=== PATIENT | female | born 2000 | race Caucasian/White ===

== ENCOUNTER 2022-09-03 00:13 | Emergency (ER) | payer SELFPAY ==
[~2022-09-03] VITALS: Ht 162 cm; Wt 82.0 kg
[2022-09-03] MEDS ORDERED: LORazepam 0.5 MG (ATIVAN) TABLET PO STA (00:26)
[2022-09-03] MEDS ORDERED: ONDANSETRON 4 MG (ZOFRAN) ORAL DISSOLVE TAB PO STA (00:26)
--- NOTE | 2022-09-03 00:37 | ED Psychosocial ---
General Chief Complaint: Substance Abuse Stated Complaint: CBD GUMMIES Source: patient History of Present Illness Date Seen by Provider: Sep 03, 2022 Time Seen by Provider: 00:16 Initial Comments 22-year-old female presenting with complaints of feeling like she took too much in terms of "delta 8 Gummies". She states that she got them from the [employer] store and took 4 of them around 2230. She felt palpitations, nausea, light headed, and like she was going to pass out when she closed her eyes. She reports taking delta 8 previously but this was the first time she did not as edibles. When she looked at her bedside that there was 50 mg of CBD in each gummy and she had taken for them. Since she felt like she had taken too much she had tried to make herself throw up. She was still feeling the same effects and symptoms. She felt like things were getting worse instead of better. She does have a history of anxiety and depression. She denies any suicidal or homicidal ideations. She denies taking any other drugs or substances. Timing/Duration: this evening, getting worse Severity: moderate Associated Symptoms: ingestion Allergies and Home Medications Allergies Coded Allergies: No Known Drug Allergies (Unverified , 09/03/22) Patient Home Medication List Home Medication List Reviewed: Yes Review of Systems Constitutional: No chills, No fever EENTM: no symptoms reported Respiratory: no symptoms reported Cardiovascular: palpitations Gastrointestinal: nausea, vomiting Genitourinary: No dysuria Musculoskeletal: no symptoms reported Skin: no symptoms reported Psychiatric/Neurological: Anxiety, Emotional Problems Past Chtwirc-Xtokvd-Aaqcvm Hx Patient Social History Tobacco Use?: No Use of E-Cig and/or Vaping dev: Yes E-Cig or Vaping type used: CBD, Synthetic Cannabinoids Substance use?: Yes Substance type: Other (CBD ) Past Medical History Surgery/Hospitalization HX: Anxiety, Depression, Insomnia Physical Exam Vital Signs - First Documented 09/03/22 00:19 Temp 36.4 Pulse 114 Resp 18 B/P (MAP) 135/87 (103) Pulse Ox 100 O2 Delivery Room Air Capillary Refill : Height, Weight, BMI Height: '" Weight: lbs. oz. kg; BMI Method: General Appearance: WD/WN, no apparent distress HEENT: PERRL/EOMI, pharynx normal Neck: non-tender, full range of motion, supple, normal inspection Respiratory: chest non-tender, lungs clear, normal breath sounds, no respiratory distress, no accessory muscle use Cardiovascular: normal peripheral pulses, tachycardia Gastrointestinal: normal bowel sounds, non tender, soft, no pulsatile mass Extremities: normal range of motion, non-tender, normal capillary refill Neurologic/Psychiatric: glove finisher II-XII nml as tested, no motor/sensory deficits, alert, oriented x 3 Appearance/Memory: appropriate appearance, appropriate insight, neat Behavior/Eye Contact: cooperative, good eye contact Thoughts/Hallucinations: no apparent hallucination Skin: normal color, warm/dry Progress/Results/Core Measures Results/Orders My Orders Orders - EVAN TOLBERT MD Ondansetron Oral Dissolve Tab (Zofran (09/03/22 00:26) Lorazepam Tablet (Ativan Tablet) (09/03/22 00:26) Vital Signs/I&O 09/03/22 00:19 Temp 36.4 Pulse 114 Resp 18 B/P (MAP) 135/87 (103) Pulse Ox 100 O2 Delivery Room Air Progress Progress Note : Progress Note Reassured patient that her oxygen saturation and vital signs appeared stable. Encourage fluids and rest. I did not have any medication or treatment that would make the CBD go out of her system faster. We will administer a dose of Zofran to help from nausea standpoint and a dose of Ativan to help with anxiety. Give Zofran ODT 4 mg x 1 and lorazepam 0.5 mg p.o. x1. Encouraged her to rest and avoid further use of the delta 8 or cannabidol products. Given information about the [facility] clinic for her to try and establish a primary care provider [facility] to continue to help manage her health. Departure Impression Primary Impression: Adverse effect of cannabis, initial encounter Additional Impressions: Use of cannabinoid edibles Adverse effect of synthetic cannabinoids, initial encounter Disposition: 01 HOME, SELF-CARE Condition: Stable Departure-Patient Inst. Decision time for Depature: 00:33 Referrals: [facility] Patient Instructions: ALCOHOL AND SUBSTANCE ABUSE, Tetrahydrocannabinol and Cannabidiol, Adverse Drug Reactions, Adult ED Add. Discharge Instructions: Avoid using Cannibidonol containing gummies or substances. This includes the CBD gummies like the Delta 8 that you took tonight. It will take at least 8 to 12 hours to wear out of your body. The nausea medicine and medicine to help you relax and treat anxiety from side effects of the gummies. Try to rest and relax and with the medicine from here hopefully you can rest and sleep through a lot of the side effects. Call [facility] clinic at [phone] to get established with a clinic provider locally here in [place]. All discharge instructions reviewed with patient and/or family. Voiced understanding. Work/School Note: Work Release Form Date Seen in the Emergency Department: Sep 03, 2022 Return to Work: Sep 04, 2022 Restrictions: No Restrictions EVAN TOLBERT MD Sep 03, 2022 00:36
[2022-09-03 00:47] VITALS: BP 135/87
== END 2022-09-03 00:48 | disposition home or self-care (01) ==
LOC: ER FS 00:17
DX: R00.2 Palpitations (principal); R11.0 Nausea; R42 Dizziness and giddiness; T40.715A Adverse effect of cannabis, initial encounter; F17.290 Nicotine dependence, other tobacco product, uncomplicated
CPT/HCPCS: 99283